=== PATIENT | male | born 1965 | race Caucasian/White ===

== ENCOUNTER 2024-04-29 21:03 | Emergency (ER) | payer OTHER, SELFPAY ==
[2024-04-29 21:14] VITALS: BP 165/89
[2024-04-29 21:23] VITALS: BMI 33.3
[2024-04-29 23:02] LABS: % Basophils 0.4 % (0-2); % Eosinophils 1.8 % (0-6); % Immature Granulocytes 0.3 % (0-0.5); % Lymphocytes 22.8 % (20.5-51.1); % Monocytes 9.1 % (1.7-9.3); % Neutrophils 65.6 % (42.2-75.2); Absolute Eosinophils 0.2 10^3/uL (0-0.7); Absolute Lymphocytes 2.3 10^3/uL (1.2-3.4); Absolute Monocytes 0.9 10^3/uL (0.1-0.6); Absolute Neutrophils 6.7 10^3/uL (1.4-6.5); Hemoglobin 14.8 g/dL (13.0-18.0); Mean Corp Hgb Conc. 33.6 g/dL (33.0-37.0); Mean Corpuscular Volume 83.2 fL (80.0-94.0); Mean Platelet Volume 10.7 fL (7.4-10.4); Nucleated Red Blood Cells % 0 % (-); Platelet Count 242 10^3/uL (130-400); Red Blood Cell Count 5.29 10^6/uL (4.70-6.10); Red Cell Dist. Width 13.3 % (11.5-14.5); White Blood Cell Count 10.2 10^3/uL (4.8-10.8)
[2024-04-29] MEDS: MARCAINE 0.5% W/EPI DENTAL CARTDRIDGE 1 CARTRIDGE INJ (23:10)
[2024-04-29 23:16] LABS: ALT (SGPT) 42 U/L (0-50); AST (SGOT) 34 U/L (17-59); Albumin 4.7 g/dl (3.5-5.0); Alkaline Phosphatase 96 U/L (38-126); Blood Urea Nitrogen 16 mg/dl (9-20); Calcium 9.3 mg/dl (8.4-10.2); Carbon Dioxide 30 mmol/L (22-30); Chloride 101 mmol/L (98-107); Estimated Creatinine Clearance 94 ml/min; Glucose 122 mg/dl (70-99); Potassium 3.6 mmol/L (3.5-5.1); Sodium 141 mmol/L (135-145); Total Bilirubin 0.3 mg/dl (0.2-1.3); Total Protein 7.8 g/dl (6.3-8.2); eGFR > 60.00
[2024-04-29 23:17] LABS: Lactic Acid 1.2 mmol/L (0.7-2.0)
--- NOTE | 2024-04-29 23:19 | ED.GENMED ---
History of Present Illness
General
Chief Complaint: Dental Problem
Source: patient
Exam Limitations: none
Time Seen by Provider: 04/29/24 22:58
History of Present Illness
History of Present Illness:
Pleasant 58-year-old male that presents with 2 weeks of left tooth pain. His second molar on the bottom has been causing him pain. Was seen by his doctor 4 days ago. At that time no antibiotic was started. They felt that it was age-related pain
of the teeth. The pain is progressively worsened and swelling ensued. Patient does not have a fever but feels chills. Denies any discharge in his mouth.
Past History
Past History
ED Past Medical History: HTN and Other (Sarcoidosis)
Social History
Tobacco: Non-smoker
Alcohol: None
Drug: None
Personal:
Review of Systems
Review of Systems
Allergies reviewed?: Yes
Other source history: family
All Other Systems: Not applicable
Constitutional: Reports no symptoms
EENT: Reports mouth pain and mouth swelling
Respiratory: Reports no symptoms
Cardiac: Reports no symptoms
ABD/GI: Reports no symptoms
: Reports no symptoms
Musculoskeletal: Reports no symptoms
Skin: Reports no symptoms
Neurological: Reports no symptoms
Endocrine: Reports no symptoms
Hematologic/Lymphatic: Reports no symptoms
Psychiatric: Reports no symptoms
Phy Exam
General Physical Exam
General Presentation: well appearing and no apparent distress
General Skin: warm and dry
General Habitus: normal
General Mental: alert
General Hydration: appears well hydrated
ENT Exam
ENT Exam: neck supple, normocephalic and swallowing well
Eye Exam
Eye Exam: PERRL, cornea clear and conjunctiva normal
Cardiovascular Exam
Cardiovascular Exam: regular rate/rhythm, no edema, no murmur and normal peripheral pulses
Pulmonary Exam
Pulmonary Exam: lungs clear, no respiratory distress, no rales, no crackles, no rhonchi, no stridor, no wheezing and no cough
Gastrointestinal Exam
Gastrointestinal Exam: normal bowel sounds, non tender, soft, no organomegaly, no pulsatile mass and non distended
Neurological Exam
Neurological Exam: alert, oriented x3, no motor deficits and speech normal
Musculoskeletal Exam
Musculoskeletal Exam: full ROM and no edema
Skin Exam
Skin Exam: normal color, warm/dry, no rash and no petechia
Psychiatric Exam
Psychiatric Exam: normal mood/affect
Course
Orders/Labs/Results
Orders:
Orders
04/29/24 22:50
Complete Blood Count/With Diff Urgent
Comprehensive Metabolic Panel Urgent
Lactic Acid Urgent
Procalcitonin Urgent
PCT Algorithmm Indication: Sepsis
Blood Culture Q30M
PIPER Source: Blood/Venous
Specimen Description:
Blood Culture Q30M
PIPER Source: Blood/Venous
Specimen Description:
04/29/24 23:04
Bupivacaine HCl/Epinephrine [Marcaine 0.5% W/Epi [facility] [place]] 1 cartridge INJ OR ONE
04/29/24 23:07
Bupivacaine HCl/Epinephrine [Marcaine 0.5% W/Epi [facility] [place]] 1 cartridge .ROUTE .STK-MED ONE
04/29/24 23:26
CT Facial Bones W/ Iv Contrast Urgent
Comment:
Reason For Exam: swelling near left lower jaw
04/30/24 01:05
Amoxicillin [Amoxil] 1,000 mg PO NOW STA
04/30/24 01:27
Ibuprofen [Motrin] 800 mg .ROUTE .STK-MED ONE
04/30/24 01:28
Ibuprofen [Motrin] 800 mg PO NOW STA
Abnormal Lab Results
04/29/24
22:50
MPV 10.7 H fL
(7.4-10.4)
Absolute Neuts (auto) 6.7 H 10^3/uL
(1.4-6.5)
Absolute Monos (auto) 0.9 H 10^3/uL
(0.1-0.6)
Glucose 122 H mg/dl
(70-99)
04/29/24 22:50
04/29/24 22:50
Vital Signs
Initial and Last Documented VS:
Initial Vital Signs
Temp Pulse Resp BP Pulse Ox
98.3 F 65 18 165/89 96
04/29/24 21:14 04/29/24 21:14 04/29/24 21:14 04/29/24 21:14 04/29/24 21:14
Last Documented Vital Signs
Temp Pulse Resp BP Pulse Ox
98.3 F 50 20 151/98 98
04/29/24 21:14 04/30/24 01:22 04/30/24 01:22 04/30/24 01:22 04/30/24 01:22
*Critical Care Note
Total Time (30-74mins, 75-104mins- exclusive of procedures): Not Applicable
Update Note
Update Note:
CT face with contrast
Comparison: None asymmetric
IMPRESSION:
Subcutaneous edema over the left mandibular body without focal fluid collection to suggest abscess. Lucency surrounding the left lower canine which extends into the mandible is a suspected source.
Floor of the mouth appears normal. No tonsillar enlargement. Mild asymmetry in lymph nodes in the left submandibular/submental region.
ED Attending Note
-
Portions of this chart may have been created with voice recognition software.� Occasional wrong word or��sound alike� substitutions may have occurred due to the inherent limitations of voice recognition software.
Discharge Plan
Departure
Patient Disposition: Home (Routine Discharge)
Date of Disposition: 04/30/24
Time of Disposition: 01:48
Patient with high blood pressure during this ER visit?: Yes
Condition: Good
Discharge Problem:
Dentalgia
Instructions: Dental Pain (DC), BLOOD PRESSURE
Prescriptions:
New
amoxicillin 500 mg capsule
1,000 mg PO Q12H Qty: 20 0RF
diclofenac sodium 75 mg tablet,delayed release (DR/EC)
75 mg PO BID Qty: 10 0RF
oxycodone-acetaminophen [Percocet] 5-325 mg tablet
1 tab PO Q6HPRN PRN (Reason: pain) Qty: 7 0RF
No Action
amlodipine 5 mg Tablet
5 mg PO DAILY
lisinopril-hydrochlorothiazide 20-25 mg Tablet
1 tab PO DAILY
Multivitamin 50 Plus Tablet
1 tab PO DAILY
rosuvastatin 5 mg Tablet
5 mg PO DAILY
omega 7-mcm-aae-fish oil [Fish Oil] 60-90-500 mg Capsule
1 cap PO DAILY
Referrals:
Jeremiah Gipson DO [Family Provider] -
Activity Restrictions/Additional Instructions:
Your prescriptions were sent electronically to the pharmacy that you specified.
It was a pleasure meeting you and taking part in your care. We hope for your continued healing and wellness.
Please read discharge instructions in their entirety. However, they are for general education and may not describe your exact diagnosis at discharge. Information on your ER visit and medical conditions were discussed with you along with appropriate
follow up information...
If indicated, please take your medications as instructed and indicated on discharge paperwork.
Please schedule a follow up appointment as directed. Call to schedule an appointment
Please return to the emergency department with ANY change in, persisting, or worsening of symptoms. If any of your symptoms do not improve, or persist, or become more severe within 6-12 hours, please return to the emergency department for further
care.
Please return to the emergency department if you develop a headache, neck pain/stiffness, fever greater than 100.4F, chest pain, shortness of breath, persistent nausea, vomiting, slurred speech, difficulty walking, numbness/tingling, weakness, signs
of infection or any other symptoms that are worrisome to you.
If you have any questions or concerns please do not hesitate to call the Hospital at or E-mail me directly at [email or web address]
Interventions
Interventions:
*Risk Screen - Suicide Last Done: 04/29/24 21:14
*General Assessment Last Done: 04/29/24 21:14
*Neglect/Abuse Screening Last Done: 04/29/24 21:14
ED- Fall Risk Assessment Last Done: 04/29/24 21:28
*ED COVID-19 Vaccine History Last Done: 04/29/24 21:14
*Nursing Disposition Last Done: 04/30/24 01:56
Discharge Date and Time
Discharge Date/Time: 04/30/24 01:57
Print Language: WALLISIAN
[2024-04-29 23:41] LABS: Procalcitonin < 0.05 ng/ml (0.0-0.25)
[2024-04-30] MEDS: AMOXIL 1000 MG PO (01:20)
[2024-04-30 01:22] VITALS: BP 151/98
[2024-04-30] MEDS: MOTRIN 800 MG PO (01:28)
== END 2024-04-30 01:57 | disposition home or self-care (01) ==
LOC: EMR 21:03
PROVIDERS: EMERGENCY PHYSICIAN Student in an Organized Health Care Education/Training Program; FAMILY PHYSICIAN Family Medicine
DX: K08.89 Other specified disorders of teeth and supporting structures (principal); I10 Essential (primary) hypertension
CPT/HCPCS: 96372; 99284; 70487; 80053; 83605; 84145; 85025; 87040; Q9967

== ENCOUNTER → 2025-04-24 07:41 | Outpatient (REF) | payer OTHER, SELFPAY | LOC: MRI 3T 07:41 | PROVIDERS: ATTENDING PHYSICIAN Student in an Organized Health Care Education/Training Program; FAMILY PHYSICIAN Family Medicine | DX: R97.20 Elevated prostate specific antigen [PSA] (principal) | CPT/HCPCS: 72197; A9575 ==